=== PATIENT | male | born 1990 | race Hispanic/Latino ===

== ENCOUNTER 2020-02-20 17:31 | Emergency (ER) | payer OTHER ==
[~2020-02-20] VITALS: Ht 172.7 cm; Wt 96.9 kg
[2020-02-20] MEDS ORDERED: MOTRIN (17:38)
[2020-02-20] MEDS ORDERED: tylenol 2 tabs (17:38)
--- NOTE | 2020-02-20 18:37 | REP ---
Left small finger series: Four views. History: Injury after a fall. Findings: Four views of the small finger demonstrate a slightly comminuted fracture of the proximal phalanx with slight impaction and associated soft-tissue swelling. Impression: Fifth proximal phalangeal fracture with comminution. Electronically Signed by Phong Morales MD 02/20/2020 06:28 P
[2020-02-20] MEDS ORDERED: NORCO, ANEXSIA 5/325MG TABLET (HYDROcodone/ACETAMINOPHEN) PO ONE (19:45)
[2020-02-20 19:56] VITALS: BP 118/67
== END 2020-02-20 19:56 | disposition home or self-care (01) ==
LOC: M ED 17:31
DX: S62.616A Displaced fracture of proximal phalanx of right little finger, initial encounter for closed fracture (principal); W17.2XXA Fall into hole, initial encounter; Y99.1 Military activity; Z90.89 Acquired absence of other organs